=== PATIENT | female | born 1970 | race Caucasian/White ===

== ENCOUNTER 2022-02-16 08:27 | Emergency (ER) | payer OTHER, SELFPAY ==
[2022-02-16 08:36] VITALS: BP 148/94; PULSE 79; RESP 18; TEMP 36.4; O2SAT 99
--- NOTE | 2022-02-16 09:16 | ED.HA ---
HPI - Headache General Chief Complaint: Headache Stated Complaint: High Blood Pressure Time Seen by Provider: 02/16/22 08:57 Source: patient Mode of arrival: ambulatory Limitations: no limitations History of Present Illness HPI Narrative: Patient presents today complaining of elevated blood pressure at home. States over the past several days her diastolic blood pressure has been up to 102. She has also had a couple of migraines over the past week. She does have history of migraines. Her migraine this morning consists of a frontal headache, mild nausea with photophobia. Her headache this morning is consistent with previous migraines. She took 400 mg of ibuprofen at 7:00 this morning, however, has not taken her abortive medication rizatriptan yet. States that she called her PCPs office and was told to come to urgent care regarding her elevated blood pressure 155/102 this morning. Her blood pressure upon arrival today was 148/94. Related Data Home Medications Medication Instructions Recorded Confirmed amitriptyline 10 mg tablet 10 mg PO DIRECTED 02/16/22 02/16/22 rizatriptan 10 mg tablet 10 mg PO DIRECTED 02/16/22 02/16/22 Allergies Allergy/AdvReac Type Severity Reaction Status Date / Time No Known Allergies Allergy Unverified 02/16/22 08:55 Review of Systems Review of Systems: CONSTITUTIONAL: Denies body aches, fever, chills, or sweats. EYES: Denies visual changes, redness, or discharge.+ Photophobia ENT: Denies rhinorrhea, congestion, sore throat, or otalgia. CARDIOVASCULAR: Denies chest pain, palpitations, or edema. RESPIRATORY: Denies cough or dyspnea. GASTROINTESTINAL: Denies abdominal pain, vomiting, or diarrhea.+ Nausea GENITOURINARY: Denies dysuria or hematuria. SKIN: Denies rash, itching, or wounds. MUSCULOSKELETAL: Denies back pain, joint pain, or myalgia. NEUROLOGIC: Denies numbness, tingling, or weakness.+ Headache PSYCH: Denies depression or anxiety. [facility] Past Medical History Medical History (Updated 02/16/22 @ 09:22 by Anila Grant, MANAGER CLIENT SUPPORT, [facility]) Migraines Comments At time of signature, I have reviewed and agree with nursing past medical, surgical, social and family history unless otherwise noted. Please see nursing chart for further information. There is no relevant family history pertinent to the presenting complaint Exam Narrative: GENERAL: Well-appearing, well-nourished, and in no acute distress. HEAD: Normocephalic, atraumatic. EYES: EOMI. PERRL. No redness or drainage. Conjunctivae normal. ENT: Mucous membranes pink and moist. Nares clear. No rhinorrhea. NECK: Normal AROM. CHEST: No respiratory distress. Clear to auscultation. HEART: Regular rate and rhythm. No murmur appreciated. Normal peripheral pulses. EXTREMITIES: Normal range of motion. No edema. SKIN: Warm, dry, no rash. Capillary refill normal. Normal skin turgor. NEURO: No focal deficits. Alert and oriented x3. Gait steady. Hand national account executive equal and strong. Dorsiflexion plantarflexion equal and strong against resistance. PSYCH: Normal affect. No signs of depression or anxiety. Course Course Level of Care: Express Care Visit Vital Signs Vital signs: Vital Signs Temperature 97.5 F L 02/16/22 08:36 Pulse Rate 79 02/16/22 08:36 Respiratory Rate 18 02/16/22 08:36 Blood Pressure 148/94 H 02/16/22 08:36 Pulse Oximetry 99 02/16/22 08:36 Oxygen Delivery Room Air 02/16/22 08:36 Temperature 97.5 F L 02/16/22 08:36 Pulse Rate 79 02/16/22 08:36 Respiratory Rate 18 02/16/22 08:36 Blood Pressure 148/94 H 02/16/22 08:36 Pulse Oximetry 99 02/16/22 08:36 Oxygen Delivery Room Air 02/16/22 08:36 Reviewed. Pt has been instructed to follow up with her PCP regarding her elevated blood pressure today. MDM - Headache MDM Narrative Medical decision making narrative: Patient's blood pressure was 148/94 upon arrival. At this time, this is not a blood pressure that would be treated
== END 2022-02-16 09:24 | disposition home or self-care (01) ==
PROVIDERS: Emergency Provider Nurse Practitioner; PCP Family Medicine
DX: G43.909 Migraine, unspecified, not intractable, without status migrainosus (principal)
CPT/HCPCS: 99211; G0463